=== PATIENT | female | born 1975 | race Caucasian/White ===

== ENCOUNTER 2025-03-30 23:15 | Emergency (ER) | payer SELFPAY ==
[2025-03-30] MEDS ORDERED: Lidocaine 1% w/Epinephrine 1:100K 20 ML VIAL ONE (23:28)
[2025-03-30] MEDS ORDERED: Lidocaine 1% (PF) 30 ML VIAL ONE (23:29)
[2025-03-30] MEDS ORDERED: HYDROcodone/Acetaminophen 5/325 mg Tablet ONE (23:44)
== END 2025-03-31 00:03 | disposition home or self-care (01) ==
LOC: BURERS 23:15
DX: S60.452A Superficial foreign body of right middle finger, initial encounter (principal); W45.3XXA Fishing hook entering through skin, initial encounter
CPT/HCPCS: 99283; J2003